=== PATIENT | female | born 1950 | race Caucasian/White ===

== ENCOUNTER 2016-10-09 19:32 | Emergency (ER) | payer OTHER ==
[~2016-10-09] VITALS: Ht 162.6 cm; Wt 112.5 kg
[2016-10-09 19:35] VITALS: BP 145/70
[2016-10-09] MEDS ORDERED: IBUPROFEN 600 MG TAB PO ONE (22:45)
== END 2016-10-09 22:51 | disposition home or self-care (01) ==
LOC: EDUNIT# 19:32 → EDBD 19:32 → ER 19:39
DX: S93.401A Sprain of unspecified ligament of right ankle, initial encounter (principal); E11.9 Type 2 diabetes mellitus without complications; I10 Essential (primary) hypertension; X58.XXXA Exposure to other specified factors, initial encounter; Y93.89 Activity, other specified; Y99.8 Other external cause status; Y92.89 Other specified places as the place of occurrence of the external cause
CPT/HCPCS: 73610